=== PATIENT | female | born 1980 ===

== ENCOUNTER 2018-03-18 09:31 | Emergency (ER) | payer OTHER ==
[2018-03-18 10:06] VITALS: BP 124/83
--- NOTE | 2018-03-18 11:06 | UC ---
Hand/Wrist HPI - HPI Summary HPI Summary: 37 yo c/o progressive stiffness, pain L hand. Much worse last 2 days. Pain often worse at night, but not limited to night. Pain mostly proximal thenar eminence region. No known direct trauma. 2 days ago was working hard with hands, sanding dry wall. Pain worse next am. Pt is L handed. Without meg paresthesias, dysesthesias. Unclear if weakness, feels swollen as such, unable to make a solid fist. - History Of Current Complaint Chief Complaint: UCUpperExtremity Stated Complaint: LT HAND COMP Time Seen by Provider: 03/18/18 11:04 Hx Obtained From: Patient Hx Last Menstrual Period: SPOTS ON MIRENA Pain Intensity: 3 - Allergies/Home Medications Allergies/Adverse Reactions: Allergies Allergy/AdvReac Type Severity Reaction Status Date / Time No Known Allergies Allergy Verified 03/18/18 10:03 Home Medications: Home Medications Ibuprofen 600 mg PO Q8HR 03/18/18 [History Confirmed 03/18/18] PMH/Surg Hx/FS Hx/Imm Hx Previously Healthy: Yes - Surgical History Surgical History: Yes Surgery Procedure, Year, and Place: APPENDECTOMY - Family History Known Family History: Positive: Other - cts - Social History Occupation: Employed Full-time Alcohol Use: Occasionally Substance Use Type: None Smoking Status (MU): Never Smoked Tobacco Review of Systems Constitutional: Negative Skin: Negative Eyes: Negative ENT: Negative Respiratory: Negative Cardiovascular: Negative Gastrointestinal: Negative Genitourinary: Negative Motor: Other - see hpi Neurovascular: Other - see hpi Musculoskeletal: Arthralgia, Myalgia Neurological: Negative Psychological: Negative Is Patient Immunocompromised?: No All Other Systems Reviewed And Are Negative: Yes Physical Exam Triage Information Reviewed: Yes Appearance: Well-Appearing, Well-Nourished Vital Signs: Initial Vital Signs Temp 97.0 F 03/18/18 09:57 Pulse 68 03/18/18 09:57 Resp 16 03/18/18 09:57 BP 124/83 03/18/18 09:57 Pulse Ox 100 03/18/18 09:57 Vital Signs Reviewed: Yes Eye Exam: Normal ENT Exam: Normal Neck exam: Normal - grossly normal Respiratory Exam: Normal - no tachypnea, no dyspnea Cardiovascular Exam: Normal - nondiaphoretic, heart rate regular Abdominal Exam: Normal Musculoskeletal Exam: Other - L hand +sens LT x 5 digits, subj similar x 5. Mild swelling, vivien thenar eminence. Tender prox thenar eminence. Wrist without point tenderness. Elbow ? tender nerve area "ok" thumb index able to do, but weak. 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 Unclear primary etiology, there is evidence of muscle spasm, consider focal tendonitis. However, pattern and timing of pain is susp early CTS as well. D/ w pt. Thumb spica, nsaids. F/u Hand specialist recommended. Xray R hand and R wrist reviewed (see report). Questions as posed answered to the best of my ability. - Differential Dx/Diagnosis Provider Diagnoses: Left hand strain, possible tendonitis. Consider early carpal tunnel syndrome concomitant Discharge - Sign-Out/Discharge Documenting (check all that apply): Patient Departure - Discharge Plan Condition: Stable Disposition: HOME Prescriptions: Ibuprofen 600 mg PO Q6H PRN #30 tablet PRN Reason: Pain Patient Education Materials: Tendinitis (ED), Carpal Tunnel Surgery (DC) Forms: *Work Release Referrals: Christy Davis MD [Primary Care Provider] - Rianna Cameron MD [Medical Doctor] - Additional Instructions: Follow up with your primary care physician - per routine, recommend in the next 4 weeks if possible. Unclear if primarily early carpal tunnel syndrome vs tendon overuse syndrome. Follow up with orthopedic hand surgeon, next week. Seek medical attention for worse or new problems. Immobilization splint as needed for comfort. - Billing Disposition and Condition Condition: STABLE Disposition: Home
--- NOTE | 2018-03-18 11:52 | RAD ---
HISTORY: progressive pain L hand, worse 2 days post sanding COMPARISONS: None VIEWS: 7, Frontal, lateral, and oblique views of the left hand and wrist FINDINGS: BONE DENSITY: Normal. BONES: There is no displaced fracture. JOINTS: There is no arthropathy. ALIGNMENT: There is no dislocation. SOFT TISSUES: Unremarkable. OTHER FINDINGS: None. IMPRESSION: NO ACUTE OSSEOUS INJURY OF THE LEFT HAND AND WRIST. IF SYMPTOMS PERSIST, RECOMMEND REPEAT IMAGING.
== END 2018-03-18 12:10 | disposition home or self-care (01) ==
LOC: UCCORT 09:31
DX: S66.912A Strain of unspecified muscle, fascia and tendon at wrist and hand level, left hand, initial encounter (principal); M79.642 Pain in left hand; X50.9XXA Other and unspecified overexertion or strenuous movements or postures, initial encounter; Y92.9 Unspecified place or not applicable
CPT/HCPCS: 99213; G0463